=== PATIENT | male | born 1955 | race Hispanic/Latino ===

== ENCOUNTER 2021-07-29 10:33 | Emergency (ER) | payer OTHER ==
[~2021-07-29] VITALS: Ht 182.9 cm; Wt 91.6 kg
[2021-07-29 10:35] VITALS: BP 181/82
[2021-07-29] MEDS ORDERED: KETOROLAC 30MG VIAL (30MG/ML) ONE (11:06)
[2021-07-29] MEDS ORDERED: 0.9%NACL 1000ML 1,000 ML IV ONE (11:06)
[2021-07-29] MEDS ORDERED: 0.9%NACL 1000ML 1,000 ML IV SCH (11:30)
[2021-07-29] MEDS ORDERED: KETOROLAC 30MG VIAL (30MG/ML) IVP ONE (11:30)
[2021-07-29 11:37] LABS: BASOPHILS % (AUTO) 0.5 % (0.0-5.0); EOSINOPHILS % (AUTO) 1.7 % (0.0-8.0); HEMATOCRIT 41.8 % (42-54); LYMPHOCYTES % (AUTO) 18.4 % (21.0-51.0); MEAN CORPUSCULAR HEMOGLOBIN 29.7 pg (27.0-33.0); MEAN CORPUSCULAR HGB CONC 34.2 g/dL (32.0-36.0); MEAN CORPUSCULAR VOLUME 86.9 fL (79-99); NEUTROPHILS % (AUTO) 71.1 % (40.0-77.0); PLATELET COUNT (AUTO) 189 K/uL (130-400); RED BLOOD CELL COUNT(AUTO) 4.81 MIL/uL (4.50-6.20); RED CELL DISTRIBUTION WIDTH 11.8 % (11.0-15.5); WHITE BLOOD COUNT (AUTO) 6.5 K/uL (4.8-10.8)
[2021-07-29 11:43] LABS: APPEARANCE,URINE CLEAR (CLEAR); BILIRUBIN,URINE NEGATIVE (NEGATIVE); COLOR,URINE YELLOW (YELLOW); GLUCOSE, URINE (UA) NEGATIVE (NEGATIVE); KETONES,URINE NEGATIVE (NEGATIVE); LEUKOCYTE ESTERASE ,URINE NEGATIVE (NEGATIVE); NITRATE,URINE NEGATIVE (NEGATIVE); OCCULT BLOOD,URINE NEGATIVE (NEGATIVE); PROTEIN,URINE NEGATIVE (NEGATIVE)
[2021-07-29 11:47] LABS: CREATININE 0.9 mg/dL (0.5-1.5); POTASSIUM 4.2 mmol/L (3.5-5.1)
[2021-07-29 11:52] LABS: ALBUMIN 3.8 g/dL (3.5-5.0); TOTAL PROTEIN, SERUM 7.3 g/dL (6.0-8.3)
[2021-07-29] MEDS ORDERED: NAPR375T6 PO (14:03)
== END 2021-07-29 14:27 | disposition home or self-care (01) ==
LOC: EDH 10:33
DX: N20.0 Calculus of kidney (principal); K57.30 Diverticulosis of large intestine without perforation or abscess without bleeding; E11.9 Type 2 diabetes mellitus without complications; I10 Essential (primary) hypertension; E86.0 Dehydration; Z90.49 Acquired absence of other specified parts of digestive tract
CPT/HCPCS: 99284; 80053; 85025; 81003; 36415; 74176; 96374; 96361; J7030; J1885